=== PATIENT | female | born 1935 | race Caucasian/White ===

== ENCOUNTER 2019-04-06 13:49 | Observation (INO) | payer OTHER ==
[2019-04-06] MEDS: CEFTRIAXONE 1 GM (PREMIX) 1 GM/50 ML SOL IV SCH (15:27)
[2019-04-06] MEDS: AZITHROMYCIN 250 MG TAB PO SCH (15:27)
[2019-04-06] MEDS: SODIUM CHLORIDE 0.9% FLUSH 10 ML SOL IV SCH ×2 (15:28→22:15)
[2019-04-06] MEDS ORDERED: ALBUTEROL NEB SOL 2.5MG/3ML 1 VIAL SOL NEB PRN (15:41)
[2019-04-06] MEDS: ALBUTEROL/IPRATROPIUM 1 VIAL SOL INH SCH ×2 (16:58→21:07)
[2019-04-06] MEDS ORDERED: ACETAMINOPHEN 500 MG 500 MG TAB PO PRN (20:13)
[2019-04-06] MEDS ORDERED: LORAZEPAM 0.5 MG TAB PO PRN (20:13)
[2019-04-06] MEDS ORDERED: ALBUTEROL/IPRATROPIUM 1 VIAL SOL INH SCH (20:15)
[2019-04-06] MEDS: METOPROLOL SUCCINATE 50 MG ER TAB PO SCH (21:09)
[2019-04-07] MEDS: SODIUM CHLORIDE 0.9% FLUSH 10 ML SOL IV SCH ×4 (06:37→21:52)
[2019-04-07] MEDS ORDERED: OMEPRAZOLE 40 MG ECC PO SCH (07:00)
[2019-04-07 07:38] LABS: BASOPHILS % (AUTO) 2 % (0-3); EOSINOPHILS % (AUTO) 3 % (0-9); HEMATOCRIT 28 % (35-47); HEMOGLOBIN 8.7 gm/dl (12.0-15.5); LYMPHOCYTES % (AUTO) 9.7 % (10-50); MEAN CORPUSCULAR HEMOGLOBIN 26.2 pg (27.0-32.0); MEAN CORPUSCULAR HGB CONC 30.9 gm/dl (32.0-36.0); MEAN CORPUSCULAR VOLUME 85 fL (81-99); MONOCYTES % (AUTO) 10.1 % (0-12); NEUTROPHILS % (AUTO) 75.2 % (37-80)
[2019-04-07 07:51] LABS: CALCIUM 8.6 mg/dl (8.5-10.1); CREATININE 1.18 mg/dl (0.60-1.00); POTASSIUM 4.8 mMol/L (3.5-5.1)
[2019-04-07] MEDS: ALBUTEROL/IPRATROPIUM 1 VIAL SOL INH SCH ×4 (08:01→20:23)
[2019-04-07 08:03] LABS: CARBON DIOXIDE 29.9 mEq/L (21-32)
[2019-04-07] MEDS ORDERED: ENOXAPARIN 40 MG SOL SC SCH (09:00)
[2019-04-07] MEDS: FUROSEMIDE 20 MG TAB PO SCH (09:03)
[2019-04-07] MEDS: FERROUS GLUCONATE 324 MG TABLET PO SCH ×2 (09:03→18:00)
[2019-04-07] MEDS: METOPROLOL SUCCINATE 50 MG ER TAB PO SCH ×2 (09:03→18:01)
[2019-04-07] MEDS: PANTOPRAZOLE SODIUM 40 MG ECT PO SCH (09:04)
[2019-04-07] MEDS ORDERED: CEFTRIAXONE 1 GM PDS ONE (13:07)
[2019-04-07] MEDS: CEFTRIAXONE 1 GM (PREMIX) 1 GM/50 ML SOL IV SCH (13:35)
[2019-04-07] MEDS: AZITHROMYCIN 250 MG TAB PO SCH (15:10)
[2019-04-07] MEDS ORDERED: POTASSIUM CHLORIDE 10 MEQ TER PO SCH (18:00)
[2019-04-07 23:26] VITALS: RESP 20
[2019-04-08] MEDS: SODIUM CHLORIDE 0.9% FLUSH 10 ML SOL IV SCH (05:44)
[2019-04-08] MEDS: FERROUS GLUCONATE 324 MG TABLET PO SCH (09:09)
[2019-04-08] MEDS: PANTOPRAZOLE SODIUM 40 MG ECT PO SCH (09:09)
[2019-04-08] MEDS: FUROSEMIDE 20 MG TAB PO SCH (09:10)
[2019-04-08] MEDS: METOPROLOL SUCCINATE 50 MG ER TAB PO SCH (09:10)
[2019-04-08] MEDS: ALBUTEROL/IPRATROPIUM 1 VIAL SOL INH SCH (09:10)
[2019-04-08 09:21] VITALS: BP 105/65; PULSE 91; TEMP 97.7
[2019-04-08 11:07] VITALS: O2SAT 94
[2019-04-08] MEDS: AZITHROMYCIN 250 MG TAB PO SCH (11:36)
== END 2019-04-08 12:07 | disposition home or self-care (01) | DRG 194 ==
LOC: ACUTE CARE 13:49
PROVIDERS: ADMIT Family Medicine; ATTEND Family Medicine
DX: J18.1 Lobar pneumonia, unspecified organism (principal); J44.0 Chronic obstructive pulmonary disease with (acute) lower respiratory infection; E11.9 Type 2 diabetes mellitus without complications
CPT/HCPCS: 36415; 80048; 85025; 94150; 94640; 94664; J0696; J7613; A9270-GY